=== PATIENT | male | born 2000 | race Caucasian/White ===

== ENCOUNTER 2023-08-02 17:39 | Emergency (ER) | payer SELFPAY ==
--- NOTE | 2023-08-02 17:41 | XRR_ITS ---
PROCEDURE INFORMATION: Exam: XR Right Hand Exam date and time: 08/02/2023 6:03 PM Age: 22 years old Clinical indication: Injury or trauma; Other: Punched a door; Blunt trauma (contusions or hematomas); Hand; Right TECHNIQUE: Imaging protocol: Radiologic exam of the right hand. Views: 3 or more views. COMPARISON: No relevant prior studies available. FINDINGS: Bones/joints: Multiple displaced fracture fragments through the radial base of the 4th metacarpal measuring up to 1 cm. Dorsal dislocation of the base of the 5th metacarpal. Soft tissues: Soft tissue swelling near the fracture and dislocation. XR/XR hand RT min 3V* [id number] IMPRESSION: 1. Multiple displaced fracture fragments through the radial base of the 4th metacarpal. 2. Dorsal dislocation of the base of the 5th metacarpal.
[2023-08-02 17:52] VITALS: BMI 23.6
[2023-08-02] MEDS: HYDROcodone-acetaminophen 5-325 mg Tablet 1 TAB PO (18:01)
--- NOTE | 2023-08-02 18:02 | W.ED.EXTPRO ---
HPI - Extremity Problem General: Chief complaint: Extremity Injury, Upper Stated complaint: right hand injury Time Seen by Provider: 08/02/23 17:49 Source: patient Mode of arrival: ambulatory Limitations: no limitations History of Present Illness: 19-year-old male states that he punched a door just prior to arrival he punched with his right hand he has right hand pain he rates his pain a 6 out of 10. Denies any other injuries Associated symptoms: Deny chest pain, fever(s) or rash Review of Systems Const: Denies: fever(s), chills, body aches or change in appetite ENMT: Denies: throat pain or dental pain Card: Denies: chest pain Resp: Denies: dyspnea GI: Denies: abdominal pain, nausea, vomiting or diarrhea Musc: Reports: extremity pain; Denies: neck pain or back pain Skin/Breast: Denies: rash Neuro: Denies: headache(s) Physical Exam Const: COMMON NORMALS: no acute distress, patient oriented x3 and healthy appearing HENMT: COMMON NORMALS: normocephalic and atraumatic HEAD & SCALP: normocephalic and atraumatic Neck/C-Spine: COMMON NORMALS: full ROM and supple Chest: COMMONS NORMALS: normal inspection of the chest Resp: COMMON NORMALS: normal respiratory effort Extremity: NARRATIVE EXTREMITY EXAM: Obvious deformity to right hand Neuro: COMMON NORMALS: patient oriented x3, moves all extremities and no focal motor deficits Psych: COMMON NORMALS: mental status grossly normal, Normal thought process present and cooperative THOUGHT PROCESS: Normal thought process present Skin: COMMON NORMALS: no rashes or lesions noted and no wounds GENERAL SKIN EXAM: no rashes or lesions noted Procedures Orthopedic Joint Reduction Joint #1: Time Out Performed: Yes Side: right Joint Reduction Location: other (fifth metacarpal) Analgesia: hematoma block (10cc lidocaine 1%) Local Anesthesia: lidocaine 1% Amount of anesthesic used (mL): 10 Technique used: direct manipulation Post-reduction neuro exam: intact Post-reduction vascular: intact Post Reduction X-Ray Obtained: Yes Post Reduction X-Ray Results: reduced Splint Applied: Yes Patient Tolerated Procedure: well MDM - Extremity (Nontraumatic) Medical Decision Making Patient presents with a boxer's fracture normal dislocation the fifth metacarpal did reduce the fracture placed in a splint he is to follow-up with orthopedics return if worsening Medical Records I reviewed the patient's medical records. Lab Data Radiology Impressions Hand X-Ray 08/02/23 17:41 IMPRESSION: 1. Multiple displaced fracture fragments through the radial base of the 4th metacarpal. 2. Dorsal dislocation of the base of the 5th metacarpal. All radiology interpretation(s) finalized by discharge Discharge Plan Discharge Patient Disposition: Home Clinical Impression: Fracture of hand Qualifiers: Encounter type: initial encounter Fracture type: closed Laterality: right Qualified Code(s): S62.91XA - Unspecified fracture of right wrist and hand, initial encounter for closed fracture Condition: Stable Prescriptions: New hydrocodone-acetaminophen 5-325 mg tablet 1 tab PO Q6H PRN (Reason: pain) Qty: 14 0RF Discharge Orders: Discharge ED (Routine); Ordered 08/02/23 Ordered By: Yinka Vann Referrals: Bert Rogers DO [Physician] - 1-3 days Discharge Diet: Advance as tolerated Discharge Activity: Resume usual activity Patient Instructions: Boxer Fracture (ED), Opioid Safety Coding Level of Care Code ED Storage Wharfage Clerk for Mello Mahoney
--- NOTE | 2023-08-02 19:08 | XRR_ITS ---
PROCEDURE INFORMATION: Exam: XR Right Hand Exam date and time: 08/02/2023 7:14 PM Age: 22 years old Clinical indication: Injury or trauma; Other: Post red; Additional info: Post reduction TECHNIQUE: Imaging protocol: Radiologic exam of the right hand. Views: 1 or 2 views. COMPARISON: CR ( EX, ) 08/02/2023 6:03 PM FINDINGS: Bones/joints: Successful reduction of the 5th metacarpal dislocation. Fracture through the base of the 4th metacarpal again noted. Soft tissues: Normal. XR/XR hand RT 2V [id number] IMPRESSION: Successful reduction of the 5th metacarpal dislocation.
--- NOTE | 2023-08-03 08:16 | DCPLANNER ---
Message sent to ortho for a follow up on hand fx.
== END 2023-08-02 19:36 | disposition home or self-care (01) ==
PROVIDERS: Emergency Provider Emergency Medicine
DX: S62.314A Displaced fracture of base of fourth metacarpal bone, right hand, initial encounter for closed fracture (principal); S63.064A Dislocation of metacarpal (bone), proximal end of right hand, initial encounter; W22.09XA Striking against other stationary object, initial encounter
CPT/HCPCS: 26700; 29125; 73120; 73130; 99283

== ENCOUNTER → 2023-08-03 15:49 | Outpatient (BNVA) | payer SELFPAY | PROVIDERS: Visit Provider Student in an Organized Health Care Education/Training Program | DX: S62.304A Unspecified fracture of fourth metacarpal bone, right hand, initial encounter for closed fracture; W22.09XA Striking against other stationary object, initial encounter; S63.266A Dislocation of metacarpophalangeal joint of right little finger, initial encounter | CPT/HCPCS: 73130 ==

== ENCOUNTER 2023-08-03 16:56 | Outpatient (CLI) | payer SELFPAY | END 2023-08-03 16:57 | disposition home or self-care (01) | LOC: SPT 16:56 | PROVIDERS: Visit Provider Student in an Organized Health Care Education/Training Program | DX: Z46.89 Encounter for fitting and adjustment of other specified devices (principal); S62.324D Displaced fracture of shaft of fourth metacarpal bone, right hand, subsequent encounter for fracture with routine healing; S62.326D Displaced fracture of shaft of fifth metacarpal bone, right hand, subsequent encounter for fracture with routine healing; X58.XXXD Exposure to other specified factors, subsequent encounter | CPT/HCPCS: 97760; L3984 ==

== ENCOUNTER → 2023-08-10 14:29 | Outpatient (BNVA) | payer SELFPAY | PROVIDERS: Visit Provider Student in an Organized Health Care Education/Training Program | DX: S62.304D Unspecified fracture of fourth metacarpal bone, right hand, subsequent encounter for fracture with routine healing; S63.051D Subluxation of other carpometacarpal joint of right hand, subsequent encounter; X58.XXXD Exposure to other specified factors, subsequent encounter | CPT/HCPCS: 73130 ==

== ENCOUNTER → 2023-08-20 08:20 | Outpatient (BNVA) | payer SELFPAY | PROVIDERS: Visit Provider Physician Assistant | DX: T14.8XXA Other injury of unspecified body region, initial encounter (principal); S62.304A Unspecified fracture of fourth metacarpal bone, right hand, initial encounter for closed fracture; X58.XXXA Exposure to other specified factors, initial encounter | CPT/HCPCS: 73130 ==

== ENCOUNTER 2024-12-26 10:43 | Emergency (ER) | payer SELFPAY ==
--- OUTSIDE RECORDS SUMMARY | 2024-12-26 10:48 | XMS_ITS | Clinical Summary ---
Author Organization [facility] Address [address] [place] [address] Phone Care Team Providers Care Senior Computer Specialist Name Role Phone Unavailable Primary Care Provider Unavailabl e Allergies No known active allergies Medications citalopram (CELEXA) 40 MG tablet Take 40 mg by mouth one (1) time a day Active cyclobenzaprine (FLEXERIL) 10 MG tablet Take one tablet (10 mg total) by mouth every 8 (eight) hours as needed for muscle spasms 12 tablet 12/01/2019 Active Active Problems No known active problems Social History Tobacco Use Types Packs/Day Years Used Date Smoking Tobacco: Every Day Smokeless Tobacco: Never Alcohol Use Standard Drinks/Week Comments No 0 (1 standard drink = 0.6 oz pur e alcohol) Intimate Partner Safety Answer Date Rec orded Intimate Partner Safety Not At Risk 05/28/19 24 Intimate Partner Safety Not At Risk 05/28/19 24 Intimate Partner Safety Not At Risk 05/28/19 24 Intimate Partner Safety Not At Risk 05/28/19 24 Intimate Partner Safety Not on file 05/28/19 24 Sex and Gender Information Value Date Recorded Sex Assigned at Not on file 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 Gender Identity Not on file Sexual Orientation Not on file Last Filed Vital Signs Vital Sign Reading Time Taken Comments Blood Pressure 116/77 12/01/2019 12:59 PM CDT Pulse 77 12/01/2019 12:59 PM CDT Temperature 36.4 C (97.6 F) 12/01/2019 12:59 PM CDT Respiratory Rate 18 12/01/2019 12:59 PM CDT Oxygen Saturation 100% 12/01/2019 12:59 PM CDT Inhaled Oxygen Concentration - - Weight 86.2 kg (190 lb) 12/01/2019 10:53 AM CDT Height 177.8 cm (5' 10 ) 12/01/2019 10:53 AM CDT Body Mass Index 27.26 12/01/2019 10:53 AM CDT Plan of Treatment Health Maintenance Due Date Last Done Comments Annual Depression Screening 08/31/2010 HPV Vaccines (1 - Male 3-dose series) 08/31/2014 Annual Physical 08/31/2017 Hepatitis C Antibody Screen 08/31/2017 DTap/Tdap/Td Vaccines (1 - Tdap) 08/31/2018 Flu Vaccine (#1) 11/27/2024 Influenza Vaccine 11/27/2024
[2024-12-26 11:01] VITALS: BP 114/77; PULSE 71; RESP 16; TEMP 36.8; O2SAT 100; BMI 24.3
--- NOTE | 2024-12-26 11:33 | ED_ITS ---
HPI - Nausea/Vomiting/Diarrhea 2 General: Chief complaint: Nausea/Vomiting/Diarrhea Stated complaint: n/v /f/d Time Seen by Provider: 12/26/24 11:01 History of Present Illness: 44-year-old male presents emergency room complaining of nausea vomiting for the last 4 hours persistent. Has had problems with this in the past he previously been seen at that have a gastritis had an EGD that did not show anything significant. No fever sweats chills no hematemesis no hematochezia. He has had some dark vomitus. Patient does admit to using up to 3 g of marijuana per day. Associated nausea: Yes Associated symtoms: Reports nausea; Denies chest pain or dysuria Related Data Previous Rx's ?Medication ?Instructions ?Recorded lorazepam 2 mg tablet (Ativan) 2 mg buccal Q6H PRN kirsten sea and 12/26/24 vomiting #10 tabs olanzapine 10 mg disintegrating 10 mg PO Q8H PRN nause a and 12/26/24 tablet vomiting #10 tabs Allergies Allergy/AdvReac Type Severity Reaction Status Date / Time No Known Allergies Allergy Verified 08/20/23 08:28 Review of Systems 2 Const: Denies: fever(s) or chills Card: Denies: chest pain Resp: Denies: dyspnea GI: Reports: abdominal pain, nausea and vomiting; Denies: hematemesis or coffee ground emesis : Denies: dysuria, urinary frequency or urinary urgency Musc: Denies: neck pain or back pain Skin/Breast: Denies: rash PFSH ED 2 PFSH: Social History Smoking and tobacco/nicotine status: current every day tobacco/nicotine user Physical Exam 2 Const: GENERAL APPEARANCE: cooperative ORIENTATION/CONSCIOUSNESS: Yes awake, Yes oriented to person, Yes oriented to place and Yes oriented to time HENMT: COMMON NORMALS: normocephalic, atraumatic and hearing grossly normal bilaterally HEAD & SCALP: normocephalic and atraumatic Resp: COMMON NORMALS: normal respiratory effort, No retractions, No use of accessory muscles and clear to auscultation bilaterally AUSCULTATION: clear to auscultation bilaterally Cardio: COMMON NORMALS: regular rate, regular rhythm and No murmurs present (Cardio) RATE: regular rate RHYTHM: regular rhythm GI: COMMON NORMALS: Soft to palpation and No hepatosplenomegaly present A USCULTATION: Yes normoactive bowel sounds PALPATION: Yes Soft to palpation, No Tenderness to palpation present (GI), No Guarding due to palpation present (GI) and Yes No hepatosplenomegaly present Extremity: COMMON NORMALS: normal to inspection, capillary refill normal, no clubbing, cyanosis or edema, no calf tenderness and no pedal edema Neuro: SENSORIUM/ORIENTATION: Yes oriented to person, Yes oriented to place and Yes oriented to time Skin: COMMON NORMALS: no rashes or lesions noted GENERAL SKIN EXAM: no rashes or lesions noted Course 2 Vital Signs: Vital signs: Vital Signs Temperature 98.3 F 12/26/24 11:01 Pulse Rate 67 12/26/24 13:45 Respiratory Rate 16 12/26/24 11:01 Blood Pressure 108/64 12/26/24 13:45 Pulse Oximetry 98 12/26/24 13:45 Oxygen Delivery Me thod Room Air 12/26/24 13:27 MDM - Nausea/Vomiting/Diarrhea Medical Decision Making Labs and imaging reviewed as found in the chart. Patient does have a left ankle hernia but no signs of incarceration. Symptoms have improved with medications given. Has had previous evaluations in the ER for same. Reviewed with the patient the findings of the CT. Reviewed his THC use. Patient does use THC regularly and most recently has been using increased amount of edible versions. Discussed with him diagnosis of hyperemesis cannabinoid and how this tends to be noted more often with use of edibles. Encourage patient to decrease or abstain from use of THC products at discharge from home. No findings in the abdomen or on the labs or history suggestive of GI bleed appendicitis colitis bowel obstruction or incarcerated hernia. Return if is further problems. Patient given olanzapine and Ativan to use as needed. Medical Records I reviewed the patient's medical records. Lab Data I reviewed the patient's lab results. 12/26/24 11:19 12/26/24 11:19 Radiology Impressions Abdomen/Pelvis CT 12/26/24 11:52 IMPRESSION: 1. Normal appendix. 2. No GI tract obstruction. 3. No colitis. 4. No renal obstruction. 5. Negative gallbladder. 6. Fluid in the LEFT inguinal hernia but there is no associated loop of GI tract. No omental fat stranding to suggest fat necrosis. Laboratory Results WBC 13.52 10^3/uL (3.29-11.43) H 12/26/24 11:19 RBC 5.85 10^6/uL (3.85-5.65) H 12/26/24 11:19 Hgb 18.10 g/dL (11.27-16.99) H 12/26/24 11:19 Hct 51.7 % (37-53) 12/26/24 11:19 MCV 88.4 fl (82-101) 12/26/24 11:19 MCH 30.9 pg (27-33) 12/26/24 11:19 MCHC 35.0 g/dL (30-55) 12/26/24 11:19 RDW 11.9 % (12.1-15.1) L 12/26/24 11:19 Plt Count 220 10^3/cmm (157-399) 12/26/24 11:19 MPV 10.7 fL (7.4-10.4) H 12/26/24 11:19 Neut % (Auto) 86.7 % 12/26/24 11:19 Lymph % (Auto) 8.9 % 12/26/24 11:19 Emmet % (Auto) 3.4 % 12/26/24 11:19 Eos % (Auto) 0.1 % 12/26/24 11:19 Baso % (Auto) 0.4 % 12/26/24 11:19 Neut # (Auto) 11.71 10^3/uL (1.8-7.7) H 12/26/24 11:19 Lymph # (Auto) 1.2 10^3/uL (0.8-4.8) 12/26/24 11:19 Emmet # (Auto) 0.5 10^3/uL (0.2-0.9) 12/26/24 11:19 Eos # (Auto) 0.0 10^3/uL (0.0-0.8) 12/26/24 11:19 Baso # (Auto) 0.1 10^3/uL (0.0-0.1) 12/26/24 11:19 Nucleated RBC % (auto) 0 % 12/26/24 11:19 Nucleated RBCs # 0.0 /100WBC 12/26/24 11:19 Sodium 144 mmol/L (136-145) 12/26/24 11:19 Potassium 4.3 mmol/L (3.5-5.1) 12/26/24 11:19 Chloride 103 mmol/L (98-107) 12/26/24 11:19 Carbon Dioxide 25 mmol/L (22-29) 12/26/24 11:19 Anion Gap 20.3 (5-19) H 12/26/24 11:19 BUN 18 mg/dL (6-20) 12/26/24 11:19 Creatinine 1.0 mg/dL (0.7-1.2) 12/26/24 11:19 GFR Calculation 91.0 mL/min (90-130) 12/26/24 11:19 Glucose 162 mg/dL (65-115) H 12/26/24 11:19 Calculated Osmolality 303 mOsm/kg (285-295) H 12/26/24 11:19 Calcium 10.7 mg/dL (8.5-10.5) H 12/26/24 11:19 Total Bilirubin 0.6 mg/dL (0.15-1.2) 12/26/24 11:19 AST 16 U/L (0-40) 12/26/24 11:19 ALT 19 U/L (0-41) 12/26/24 11:19 Alkaline Phosphatase 51 U/L (40-130) 12/26/24 11:19 Total Protein 8.8 g/dL (6.6-8.7) H 12/26/24 11:19 Albumin 5.4 g/dL (3.5-5.2) H 12/26/24 11:19 Globulin 3.4 g/dL (1.3-4.6) 12/26/24 11:19 Lipase 17 U/L (13-60) 12/26/24 11:19 Urine Color Yellow (Yellow) 12/26/24 13:27 Urine Appearance Clear (CLEAR) 12/26/24 13:27 Urine pH 7.0 (5-7) 12/26/24 13:27 Ur Specific Mcconnell 1.098 (1.005-1.030) H 12/26/24 13:27 Urine Protein 1+ (Negative) A 12/26/24 13:27 Urine Glucose (UA) Negative (Normal) 12/26/24 13:27 Urine Ketones 1+ (Negative) H 12/26/24 13:27 Urine Blood Negative (Negative) 12/26/24 13:27 Urine Nitrate Negative (Negative) 12/26/24 13:27 Urine Bilirubin Negative (Negative) 12/26/24 13:27 Urine Urobilinogen 1.0 mg/dL (Negative) 12/26/24 13:27 Ur Leukocyte Esterase Negative (Negative) 12/26/24 13:27 Urine RBC None /hpf (0-2) 12/26/24 13:27 Urine WBC None /hpf (0-5) 12/26/24 13:27 Ur Squamous Epith Cells None /hpf (0-5) 12/26/24 13:27 Amorphous Sediment Not Reportable 12/26/24 13:27 Urine Bacteria None /hpf (NONE) 12/26/24 13:27 Urine Mucus None /hpf 12/26/24 13:27 All radiology interpretation(s) finalized by discharge Discharge Plan Discharge Patient Disposition: Home Clinical Impression: Cannabinoid hyperemesis syndrome Condition: Stable Prescriptions: New lorazepam [Ativan] 2 mg tablet 2 mg buccal Q6H PRN (Reason: nausea and vomiting) Qty: 10 0RF olanzapine 10 mg tablet,disintegrating 10 mg PO Q8H PRN (Reason: nausea and vomiting) Qty: 10 0RF Discharge Orders: Discharge ED (Routine); Ordered 12/26/24 Ordered By: Emil Bonner Discharge Diet: Clear Liquid Discharge Activity: Increase activity as tolerated Patient Instructions: Opioid Safety, Pain Management, Patient Portal & Sharda Instructions Activity Restrictions/Additional Instructions: Thank you for choosing [facility] for your healthcare needs today. It is very important that you follow up as instructed or that you return to the Emergency Department should you have concerns or if your condition changes or worsens in any way. Emergency department visits are focused on emergent conditions, in some cases you may require further evaluation on an outpatient basis. You were seen in the emergency room with complaints of persistent nausea vomiting. Based on your exam and history believe this is related to the marijuana use. Recommend cutting back on use particularly of edible products. Recommend clear liquid diet for 24 to 48 hours and advance as tolerated. You can use the olanzapine and Ativan as needed for nausea vomiting. (Please note that included in your discharge packet is information concerning opioid safety and pain management. This information is given to all patients were discharged from the ER regardless of their discharge diagnosis or the medicines they usually take or are prescribed.) Print Language: Ukrainian Coding Level of Care Code ED Strategic Account Director for Mello Mahoney
[2024-12-26 11:35] LABS: Hematocrit 51.7 % (37-53); Hemoglobin 18.10 g/dL (11.27-16.99); Mean Corpuscular HGB Conc 35.0 g/dL (30-55); Mean Corpuscular Hemoglobin 30.9 pg (27-33); Mean Corpuscular Volume 88.4 fl (82-101); Nucleated Red Blood Cells % 0 %; Platelet Count 220 10^3/cmm (157-399); Red Blood Count 5.85 10^6/uL (3.85-5.65); White Blood Count 13.52 10^3/uL (3.29-11.43)
--- NOTE | 2024-12-26 11:52 | CT_ITS ---
WS: [id number] CT ABDOMEN AND PELVIS WITH CONTRAST HISTORY: Abdominal pain with vomiting. TECHNIQUE: Imaging performed of the abdomen and pelvis with IV contrast. Single phase imaging of the abdomen. Coronal and sagittal reformats are submitted. All CT scans at [facility] use at least one of these dose optimization techniques: automated exposure control; mA and/or kV adjustment per patient size (includes targeted exams where dose is matched to clinical indication); or iterative reconstruction. IV CONTRAST: Omnipaque 350; 100 mL IV. Oral contrast: No DLP: 495.33 mGy.cm COMPARISON: None available. Lower thorax: Lung bases are clear. Heart is normal size. No hiatal hernia. Liver/biliary system: Normal size with no intrahepatic dilatation. Gallbladder: Normal. No gallstones or wall thickening. No pericholecystic fluid. Pancreas: Normal size pancreas and pancreatic duct. No adjacent inflammation. Spleen: Normal size spleen. No mass or infarct. Adrenal glands: Normal. Right kidney: Normal. Left kidney: Normal. Aorta: Normal. Lymphadenopathy: None. Free fluid: None. GI tract: No GI tract obstruction. Stomach is moderately distended with fluid and air. No small bowel obstruction. The appendix is normal. No colitis or wall thickening. Mild sigmoid diverticulosis. There is no evidence for acute diverticulitis. Abdominal wall: Unremarkable abdominal wall. No hernia. Pelvis: No free fluid or adenopathy within the pelvis. There is a small amount of fluid in the LEFT inguinal hernia. There is no associated loop of GI tract extending into the inguinal hernia. Bones: Unremarkable. CT/CT abdomen pelvis w con* [id number] IMPRESSION: 1. Normal appendix. 2. No GI tract obstruction. 3. No colitis. 4. No renal obstruction. 5. Negative gallbladder. 6. Fluid in the LEFT inguinal hernia but there is no associated loop of GI tra ct. No omental fat stranding to suggest fat necrosis.
[2024-12-26 11:57] LABS: Alanine Aminotransferase 19 U/L (0-41); Albumin Level 5.4 g/dL (3.5-5.2); Alkaline Phosphatase 51 U/L (40-130); Anion Gap 20.3 (5-19); Aspartate Amino Transferase 16 U/L (0-40); Blood Urea Nitrogen 18 mg/dL (6-20); Calcium 10.7 mg/dL (8.5-10.5); Carbon Dioxide 25 mmol/L (22-29); Chloride 103 mmol/L (98-107); Creatinine Clr Calc Pharmacy 119.2237; Globulin 3.4 g/dL (1.3-4.6); Glucose 162 mg/dL (65-115); Lipase 17 U/L (13-60); Osmolality Calculated 303 mOsm/kg (285-295); Potassium 4.3 mmol/L (3.5-5.1); Sodium 144 mmol/L (136-145); Total Protein 8.8 g/dL (6.6-8.7)
[2024-12-26] MEDS: pantoprazole 40 mg SDV 80 MG IVP (12:09)
[2024-12-26] MEDS: haloperidol inj 5 mg/mL INJ 1 mL 2.5 MG IVP (12:09)
[2024-12-26] MEDS: ondansetron 2 mg/ML SDV 2 mL 4 MG IVP (12:10)
[2024-12-26] MEDS: LORazepam 1 MG/0.5 ML injection IVP (12:10)
[2024-12-26 12:15] VITALS: BP 127/73; PULSE 55; O2SAT 94
[2024-12-26] MEDS: iohexol 350 mg/mL 500 mL Btl (per mL) IV (12:24)
[2024-12-26 13:27] VITALS: BP 90/58; PULSE 72; O2SAT 92
--- NOTE | 2024-12-26 13:36 | PC.NURSE ---
Pt requesting fluids at this time Patient requesting fluids as he is no longer nauseated. Dr. Bonner stated that he was going to d/c the patient and we were okay to give fluids.
[2024-12-26 13:41] LABS: Glucose Urine UA Negative (Normal); Nitrate Urine Negative (Negative)
[2024-12-26 13:45] VITALS: BP 108/64; PULSE 67; O2SAT 98
[2024-12-26 13:54] LABS: Specific Gravity, Urine 1.098 (1.005-1.030)
[2024-12-26 13:55] LABS: Add Urine Microscopic? YES
== END 2024-12-26 13:50 | disposition home or self-care (01) ==
PROVIDERS: Emergency Provider Family Medicine
DX: R11.2 Nausea with vomiting, unspecified (principal); F12.90 Cannabis use, unspecified, uncomplicated; Z72.0 Tobacco use
CPT/HCPCS: 74177; 80053; 81001; 83690; 85025; 96374; 96375; 99285; J1630; J2060; J2405; J2470; J7030